=== PATIENT | male | born 1980 | race Caucasian/White ===

== ENCOUNTER → 2019-09-13 | Outpatient (CLI) | payer BC ==
--- NOTE | 2019-09-13 15:56 | RAD ---
CT of the chest without contrast 09/13/2019 INDICATION: Chest pain, left-sided, symptoms x6 weeks. COMPARISON STUDY: Chest x-ray and left rib radiograph October 01, 2015 TECHNIQUE: Multidetector CT imaging of the chest was performed without the administration of intravenous contrast. FINDINGS: Heart size is normal. No pericardial effusion is identified. No pathologically enlarged mediastinal adenopathy is seen. No pneumothorax, pleural effusion, or acute focal consolidative infiltrate is seen. Patchy groundglass infiltrate is present in the superior aspect of the right lower lobe. There is also a 4 mm noncalcified pulmonary nodule in the right lower. An accessory fissure is present in this location, and the nodule may reflect a small intrapulmonary lymph node. Limited visualization of the upper abdomen demonstrates no acute abnormality. IMPRESSION: 1.4 mm noncalcified nodule, superior segment right middle lobe. 2. Mild patchy groundglass infiltrate, superior aspect of the right lower lobe. The appearance favors a mild infectious or inflammatory process. Given subtlety of findings, this is currently likely radiographically occult. 3. Given both above findings, a 3-6 month follow-up CT is recommended. CT DOSING PQRS STATEMENT: One or more of the following individualized dose reduction techniques were utilized for this examination: 1. Automated exposure control 2. Adjustment of the mA and/or kV according to patient size 3. Use of iterative reconstruction technique Electronically signed by: Modesto Olsen MD (09/13/2019 3:53 PM) [id number]
== END | disposition home or self-care (01) ==
LOC: CT 07:50
PROVIDERS: ATTEND Physician Assistant Medical
DX: R91.8 Other nonspecific abnormal finding of lung field (principal)
CPT/HCPCS: 71250

== ENCOUNTER → 2020-01-23 | Outpatient (CLI) | payer BC ==
--- NOTE | 2020-01-23 08:23 | RAD ---
Examination: CT CHEST WO CONTRAST History: Pulmonary nodule follow-up Comparison/Correlation: 09/13/2019 CT chest without contrast Findings: Axial images of the chest were obtained without sagittal and coronal reformatted images were provided. Previously described superior segment right lower lobe infiltrate is no longer seen. There are no suspicious pulmonary nodule or mass lesions. Comparison described right middle lobe nodule is not currently seen. There are no enlarged thoracic lymph nodes. No pleural or pericardial effusion. No pneumothorax. The bony structures are unremarkable. Diffuse fatty infiltration of the liver is present. Impression: Resolution of previously evident infiltrates. No suspicious pulmonary nodule or mass. No further follow-up required. Fatty infiltration of the liver. PQRS Compliance Statement: One or more of the following individualized dose reduction techniques were utilized for this examination: 1. Automated exposure control 2. Adjustment of the mA and/or kV according to patient size 3. Use of iterative reconstruction technique Electronically signed by: Solomon Sy MD (01/23/2020 8:20 AM) [id number]
== END | disposition home or self-care (01) ==
LOC: CT 07:51
PROVIDERS: ATTEND Internal Medicine Critical Care Medicine
DX: R91.1 Solitary pulmonary nodule (principal); K76.0 Fatty (change of) liver, not elsewhere classified
CPT/HCPCS: 71250

== ENCOUNTER → 2020-09-09 | Outpatient (CLI) | payer BC ==
--- NOTE | 2020-09-09 08:58 | RAD ---
Study: 1. CR WRIST 2V LEFT 2. CR ELBOW LEFT 3V Indication: Pain. Injury. Comparison: None. Findings: Elbow: Elbow alignment is maintained. No displaced fracture. No large elbow joint effusion. No retained radiopaque foreign body. Wrist: Foci of mineralization along the volar/radial aspect of the wrist projecting at the level of the radial styloid. No fracture seen throughout the wrist or traumatic malalignment. Maintained joint spaces. Impression: Elbow: 1. No acute fracture or traumatic malalignment. Wrist: 1. No acute fracture or traumatic malalignment. 2. Chronic foci of mineralization project within the soft tissues volar/radial to the radial styloid. The exact location and etiology is difficult to discern by radiography but could be associated with a flexor tendon. Electronically signed by: DANIEL RAMSEY MD (09/09/2020 8:55 AM) [id number]
== END ==
LOC: PMG 08:06
PROVIDERS: ATTEND Physician Assistant Medical
DX: M79.602 Pain in left arm (principal)
CPT/HCPCS: 73080; 73100

== ENCOUNTER → 2021-02-21 | Outpatient (CLI) | payer BC ==
--- NOTE | 2021-02-21 16:43 | RAD ---
EXAM: Left ankle, 3 views. HISTORY: Pain. COMPARISON: None. FINDINGS: 3 views of the left ankle are obtained. There is no fracture, dislocation or subluxation. T he ankle mortise is intact. There is a prominent os trigonum. There is a tiny plantar spur. IMPRESSION: No acute osseous finding. Electronically signed by: Deya Valles MD (02/21/2021 4:41 PM) [id number]
== END ==
LOC: PMG 16:15
PROVIDERS: ATTEND Family Medicine
DX: M77.32 Calcaneal spur, left foot (principal)
CPT/HCPCS: 73610

== ENCOUNTER 2021-05-24 11:38 | Emergency (ER) | payer BC ==
[~2021-05-24] VITALS: Ht 188 cm; Wt 136.0 kg
[2021-05-24 12:01] VITALS: BP 188/106
--- NOTE | 2021-05-24 12:12 | PHYS DOC ---
Past History Additional Past Medical Histor: back pain (LOUIS MARTINEZ APRN) Past Surgical History: No Surgical History (LOUIS MARTINEZ APRN) Alcohol Use: None (LOUIS MARTINEZ APRN) General Adult EDM: Chief Complaint: BACK PAIN OR INJURY HPI: HPI: Patient is a 40-year-old male being seen in the ER for right lower back pain that radiates into his leg. Patient reports that pain started this morning when he got out of bed. Patient has a history of chronic back pain #bulging disc of L4 and L5 region. Patient has received steroid injections in the past. Patient rates his pain 6 out of 10. He describes it as a stabbing pain. It is worse with movement. Patient is able to bear weight and ambulate but reports that he is having difficulty standing up straight. Patient denies loss of bowel or bladder or saddle anesthesias. (LOUIS MARTINEZ APRN) Review of Systems: Review of Systems: 14 body systems of the review of systems have been reviewed. See HPI for pertinent positive and negative responses, otherwise all other systems are negative, nonpertinent or noncontributory (LOUIS MARTINEZ APRN) Physical Exam: PE: Constitutional: Well developed, well nourished, no acute distress, non-toxic appearance. [] HENT: Normocephalic, atraumatic Eyes: PERRL, EOMI, conjunctiva normal, no discharge. [] Neck: Normal range of motion, no stridor Cardiovascular:Heart rate regular rhythm, no murmur [] Lungs & Thorax: Bilateral breath sounds clear to auscultation [] Skin: Warm, dry, no erythema, no rash. [] Back: No bony spinal tenderness, negative straight leg raise, lumbar paraspinal tenderness Extremities: No tenderness, no cyanosis, no clubbing, ROM intact, no edema. [] Neurologic: Alert and oriented X 3, normal motor function, normal sensory function, no focal deficits noted. [] Psychologic: Affect normal, judgement normal, mood normal. [] (LOUIS MARTINEZ APRN) Current Patient Data: Vital Signs: Vital Signs Date Time Temp Pulse Resp B/P (MAP) Pulse Ox O2 Delivery O2 Flow Rate FiO2 05/24/21 12:01 98.6 94 16 188/106 97 Room Air (LOUIS MARTINEZ CAFETERIA OR LUNCHROOM CHECKER) EKG: EKG: [] (LOUIS MARTINEZ APRN) Radiology/Procedures: Radiology/Procedures: PROCEDURE: LUMBAR SPINE 2-3V XR LUMBAR SPINE 2-3V History: Reason: lumbar back pain / Spl. Instructions: / History: Technique: 3 views lumbar spine. Comparison: None. Findings: Normal vertebral body height and alignment. No acute fracture. Mild degenerative disc changes most prominent L5-S1. Impression: 1. No acute osseous abnormality. Electronically signed by: Maik Steiner DO (05/24/2021 12:40 PM) [id number] DICTATED AND SIGNED BY: MAIK STEINER DO DATE: 05/24/21 1239 CC: LOUIS MARTINEZ APRN; GAVI BURGESS ~MTH0 0 [] (LOUIS MARTINEZ APRN) Heart Score: C/O Chest Pain: No Risk Factors: Risk Factors: DM, Current or recent (<one month) smoker, HTN, HLP, family history of CAD, obesity. Risk Scores: Score 0 - 3: 2.5% MACE over next 6 weeks - Discharge Home Score 4 - 6: 20.3% MACE over next 6 weeks - Admit for Clinical Observation Score 7 - 10: 72.7% MACE over next 6 weeks - Early Invasive Strategies (LOUIS MARTINEZ APRN) Course & Med Decision Making: Course & Med Decision Making Pertinent Labs and Imaging studies reviewed. (See chart for details) [] Patient is a 40-year-old male with chronic back pain complaining of right lower back pain that radiates into his leg. Imaging was performed of the lumbar spine and it showed no acute findings but he was noted to have some degenerative changes. Patient was treated with anti-inflammatory medication and muscle relaxer in the ER. Patient reports feeling some improvement in his pain following treatment in the ER. Patient discharged on follow-up with his primary care provider. Patient advised to take anti-inflammatory medications at home. Patient be discharged home with muscle relaxer. Patient advised to use caution taking this medication as it may cause drowsiness. Patient advised not to take this with alcohol. I discussed with patient all findings and diagnostic testing as well as the need to follow-up with PCP for further evaluation and treatment or return to the ER if any new or worsening symptoms. Strict return precautions were also discussed at length. Patient voiced understanding and agreement with the plan. Patient is hemodynamically stable at the time of disposition. (LOUIS MARTINEZ APRN) Dragon Disclaimer: Dragon Disclaimer: This electronic medical record was generated, in whole or in part, using a voice recognition dictation system. (LOUIS MARTINEZ APRN) Attending Co-Sign The patient was seen and interviewed as well as examined at the bedside. The chart was reviewed. The case was discussed. Agree with the plan of care. (MARU DOHERTY DO) Departure Departure: Impression: Primary Impression: Back pain Qualified Codes: M54.41 - Lumbago with sciatica, right side; G89.29 - Other chronic pain Disposition: HOME / SELF CARE / HOMELESS Condition: GOOD Referrals: GAVI BURGESS (PCP) Patient Instructions: Back Pain, Adult Additional Instructions: You are seen in the ER for low back pain. Your x-ray of your spine showed no acute findings with some degenerative changes in your lumbar spine. You were treated in the ER with anti-inflammatory medications and a muscle relaxer. Please continue to take ibuprofen/naproxen at home. You will be discharged home with a muscle relaxer called Flexeril. Please take this as directed and as needed. This medication may cause drowsiness so do not take need to be alert and do not take with any alcohol. Please follow-up with your primary care provider tomorrow regarding your ER visit. If you develop worsening of your back pain, loss of bowel or bladder, numbness or tingling in your pelvis or down your legs please return to the ER immediately. EMERGENCY DEPARTMENT GENERAL DISCHARGE INSTRUCTIONS Thank you for coming to [facility] (ED) today and trusting us with you care. We trust that you had a positivie experience in our Emergency Department. If you wish to speak to the department management, you may call the director at [phone]. YOUR FOLLOW UP INSTRUCTIONS ARE FOLLOWS: 1. Do you have a private Doctor? If you do not have a private doctor, please ask for a resource list of physicians or clinics that may be able to assist you with follow up care. 2. The Emergency Physician has interpreted your x-rays. The X-Ray specialist will also review them. If there is a change in the findings, you will be notified in 48 hours when at all possible. 3. A lab test or culture has been done, your results will be reviewed and you will be notified if you need a change in treatment. ADDITIONAL INSTRUCTIONS AND INFORMATION: 1. Your care today has been supervised by a physician who is specially trained in emergency care. Many problems require more than one evaluation for a complete diagnosis and treatment. We recommend that you schedule your follow up appointment as recommended to ensure complete treatment of you illness or injury. If you are unable to obtain follow up care and continue to have a problem, or if your condition worsens, we recommend that you return to the ED. 2. We are not able to safely determine your condition over the phone nor are we able to give sound medical advice over the phone. For these safety reasons, if you call for medical advice we will ask you to come to the ED for further evaluation. 3. If you have any questions regarding these discharge instructions please call the ED at [phone]. SAFETY INFORMATION: In the interest of safety, wellness, and injury prevention; we encourage you to wear your sealbelt, if you smoke; quite smoking, and we encourage family to use a protective helmet for bicycling and other sporting events that present an increased risk for head injury. IF YOUR SYMPTOMS WORSEN OR NEW SYMPTOMS DEVELOP, OR YOU HAVE CONCERNS ABOUT YOUR CONDITION; OR IF YOUR CONDITION WORSENS WHILE YOU ARE WAITING FOR YOUR FOLLOW UP APPOINTMENT; EITHER CONTACT YOUR PRIMARY CARE DOCTOR, THE PHYSICIAN WHOSE NAME AND NUMBER YOU WERE GIVEN, OR RETURN TO THE ED IMMEDIATELY. Scripts Cyclobenzaprine Hcl (CYCLOBENZAPRINE HCL) 5 Mg Tablet 1 TAB PO TID for muscle spasm for 3 Days, #9 TAB 0 Refills Prov: LOUIS MARTINEZ APRN 05/24/21 LOUIS MARTINEZ APRN May 24, 2021 12:12 MARU DOHERTY DO May 26, 2021 09:56
[2021-05-24] MEDS ORDERED: ORPHENADRINE CITRATE 60 MG/2 ML VIAL. IM ONE (12:15)
[2021-05-24] MEDS ORDERED: KETOROLAC 60 MG/2 ML VIAL. IM ONE (12:15)
--- NOTE | 2021-05-24 12:42 | RAD ---
XR LUMBAR SPINE 2-3V History: Reason: lumbar back pain / Spl. Instructions: / History: Technique: 3 views lumbar spine. Comparison: None. Findings: Normal vertebral body height and alignment. No acute fracture. Mild degenerative disc changes most pr ominent L5-S1. Impression: 1. No acute osseous abnormality. Electronically signed by: Maik Steiner DO (05/24/2021 12:40 PM) [id number]
[2021-05-24] MEDS ORDERED: CYCL5TAB PO (12:58)
== END 2021-05-24 13:15 | disposition home or self-care (01) ==
LOC: ER 11:38
DX: M54.41 Lumbago with sciatica, right side (principal)
CPT/HCPCS: 72100; 96372; 99284; J1885; J2360

== ENCOUNTER 2021-08-31 08:47 | Emergency (ER) | payer BC ==
[~2021-08-31] VITALS: Ht 188 cm; Wt 145.0 kg
[~2021-08-31 08:47] MED LIST: CYCL5TAB PO
[2021-08-31 08:55] VITALS: BP 165/96
[2021-08-31] MEDS ORDERED: IV NORMAL SALINE 1,000ML 1,000 ML IV ONE (09:15)
--- NOTE | 2021-08-31 09:19 | PHYS DOC ---
Past History Additional Past Medical Histor: back pain Past Surgical History: No Surgical History Alcohol Use: Occasionally General Adult EDM: Chief Complaint: DIARRHEA HPI: HPI: Patient is a 41-year-old male coming in for diarrhea for 2 days. Patient states he has had thoughts 5-6 episodes of diarrhea a day. Denies any blood in his stools. Had no vomiting. Had a temperature of 101 yesterday. Also complaining of body aches. He denies any or undercooked foods, recent travel, recent antibiotics, or known sick contacts. Has had his Covid vaccines but not his influenza. Review of Systems: Review of Systems: All other systems within normal limits except for as noted in the HPI Allergies: Allergies: Allergies Coded Allergies Type Severity Reaction Last Updated Verified No Known Drug Allergies 05/24/21 No Physical Exam: PE: Constitutional: Well developed, well nourished, no acute distress, non-toxic appearance. [] HENT: Normocephalic, atraumatic, bilateral external ears normal, nose normal. [] Eyes: PERRLA, conjunctiva normal, no discharge. [] Neck: No rigidity, supple, no stridor. [] Cardiovascular: Regular rate and rhythm, brisk cap refill [] Lungs & Thorax: Non labored symmetric respirations, no tachypnea or respiratory distress [] Abdomen: Soft, nondistended, generalized tenderness, no guarding or rebound. Skin: Warm, dry, no erythema, no rash. [] Back: Unremarkable Extremities: No deformities, range of motion grossly intact, no lower extremity edema [] Neurologic: Alert and oriented X 3, no focal deficits noted. [] Psychologic: Affect normal, judgement normal, mood normal. [] Current Patient Data: Vital Signs: Vital Signs Date Time Temp Pulse Resp B/P (MAP) Pulse Ox O2 Delivery O2 Flow Rate FiO2 08/31/21 08:55 98.2 113 16 165/96 (119) 97 Room Air EKG: EKG: [] Radiology/Procedures: Radiology/Procedures: [] Heart Score: C/O Chest Pain: No Risk Factors: Risk Factors: DM, Current or recent (<one month) smoker, HTN, HLP, family hi story of CAD, obesity. Risk Scores: Score 0 - 3: 2.5% MACE over next 6 weeks - Discharge Home Score 4 - 6: 20.3% MACE over next 6 weeks - Admit for Clinical Observation Score 7 - 10: 72.7% MACE over next 6 weeks - Early Invasive Strategies Course & Med Decision Making: Course & Med Decision Making Pertinent Labs and Imaging studies reviewed. (See chart for details) [] Sacha Disclaimer: Dragann Disclaimer: This electronic medical record was generated, in whole or in part, using a voice recognition dictation system. Departure Departure: Impression: Primary Impression: Influenza A Disposition: HOME / SELF CARE / HOMELESS Condition: IMPROVED Referrals: GAVI BURGESS (PCP) Patient Instructions: Influenza A (H1N1) Scripts Oseltamivir Phosphate (TAMIFLU) 75 Mg Capsule 1 CAP PO BID for antiviral for 5 Days, #10 CAP Prov: MENDEZ MCCOY MD 08/31/21 MENDEZ MCCOY MD Aug 31, 2021 09:19
[2021-08-31 09:47] LABS: BASO # 0.1 x10^3/uL (0.0-0.2); BASO % 1 % (0-3); EOS # 0.5 x10^3/uL (0.0-0.7); EOS % 5 % (0-3); HEMATOCRIT 47.9 % (39.0-53.0); HEMOGLOBIN 15.7 g/dL (13.0-17.5); LYMPH # 2.4 x10^3/uL (1.0-4.8); LYMPH % 25 % (24-48); MEAN CORPUSCULAR HEMOGLOBIN 31 pg (25-35); MEAN CORPUSCULAR HGB CONC 33 g/dL (31-37); MEAN CORPUSCULAR VOLUME 93 fL (79-100); MONO # 0.5 x10^3/uL (0.0-1.1); MONO % 6 % (0-9); NEUT # 5.9 x10^3uL (1.8-7.7); NEUT % 63 % (31-73); PLATELET COUNT 344 x10^3/uL (140-400); RED BLOOD COUNT 5.15 x10^6/uL (4.30-5.70); RED CELL DISTRIBUTION WIDTH 14.2 % (11.5-14.5); WHITE BLOOD COUNT 9.4 x10^3/uL (4.0-11.0)
[2021-08-31 09:56] LABS: CALCIUM 9.6 mg/dL (8.5-10.1); CREATININE 1.2 mg/dL (0.7-1.3); GFR 66.1; POTASSIUM 4.8 mmol/L (3.5-5.1)
[2021-08-31 10:01] LABS: ALBUMIN 4.1 g/dL (3.4-5.0); MAGNESIUM 2.4 mg/dL (1.8-2.4); PHOSPHORUS 3.2 mg/dL (2.6-4.7); TOTAL BILIRUBIN 0.5 mg/dL (0.2-1.0); TOTAL PROTEIN 8.3 g/dL (6.4-8.2)
[2021-08-31 10:02] LABS: INFLUENZA B PATIENT NEGATIVE (NEGATIVE)
[2021-08-31 10:06] LABS: INFLUENZA A PATIENT POSITIVE (NEGATIVE)
[2021-08-31] MEDS ORDERED: OSEL75CA PO (10:17)
== END 2021-08-31 11:02 | disposition home or self-care (01) ==
LOC: ER 08:47
DX: J10.1 Influenza due to other identified influenza virus with other respiratory manifestations (principal)
CPT/HCPCS: 36415; 80053; 83690; 83735; 84100; 85025; 87804; 96360; 99283; J7030